=== PATIENT | female | born 1985 | race Caucasian/White ===

== ENCOUNTER 2019-09-27 11:34 | Emergency (ER) | payer OTHER ==
[2019-09-27] MEDS ORDERED: BUFFERED LIDOCAINE 10 ML SYRINGE SUBQ STA (11:56)
--- NOTE | 2019-09-27 12:50 | ED Physician Documentation ---
PD HPI ABD PAIN - Stated complaint Stated Complaint: LOW ABD PAIN - Chief complaint Chief Complaint: Abd Pain - History obtained from History obtained from: Patient - History of Present Illness Timing - onset: How many days ago (2) Timing - duration: Days (2) Timing - details: Gradual onset, Still present Quality: Sharp, Pain Location: RLQ Improved by: Laying still Worsened by: Moving, Position, Palpation Associated symptoms: No: Fever, Nausea, Vomiting, Hematemesis Similar symptoms before: Has not had sx before Recently seen: Surgery - Additional information Additional information: 34-year-old female who is 2 weeks had an emergency done and over the last 2 days she has began to develop some pain above the incision on the right side. She was seen yesterday and had lissa removed they did leave the Steri-Strips on the lateral aspect of the right side of the wound with some superficial dehiscence of the wound. The patient has developed some pain above that area, especially if she is moving around or touching the area. There is no drainage from the wound and no redness to the abdominal wall. Review of Systems Constitutional: reports: Fatigue. denies: Fever, Chills, Myalgias Eyes: denies: Loss of vision Ears: denies: Ear pain Nose: denies: Congestion Throat: denies: Sore throat Cardiac: denies: Chest pain / pressure Respiratory: denies: Cough GI: reports: Abdominal Pain. denies: Vomiting : denies: Dysuria, Frequency Skin: denies: Rash Musculoskeletal: denies: Neck pain, Back pain, Extremity pain PD PAST MEDICAL HISTORY - Present Medications Home Medications: Ambulatory Orders Medication Instructions Recorded Confirmed Clindamycin HCl [Clindamycin 300MG 300 mg PO Q6H #28 capsule 09/27/19 CAP] Oxycodone HCl/Acetaminophen 1 - 2 each PO Q6H PRN #14 tablet 09/27/19 [Percocet 5-325 mg Tablet] - Allergies Allergies/Adverse Reactions: Allergies Allergy/AdvReac Type Severity Reaction Status Date / Time No Known Drug Allergies Allergy Verified 09/27/19 11:57 PD ED PE NORMAL - Vitals Vital signs reviewed: Yes (hypertensive ) - General General: Alert and oriented X 3, No acute distress, Well developed/nourished - HEENT HEENT: Atraumatic, PERRL, EOMI - Neck Neck: Supple, no meningeal sign - Respiratory Respiratory: No respiratory distress - Abdomen Abdomen: Soft, Other (There is a healing pfaninsteal inscision with the right side superficially dehised. There is no surrounding erythema or drainage from the area. The area 2cm above this is tender without palpable mass. There is an area of specific tenderness. 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, No motor deficit, No sensory deficit, Normal speech Eye Opening: Spontaneous Motor: Obeys Commands Verbal: Oriented GCS Score: 15 - Psych Psych: Normal mood, Normal affect Results - Vitals Vitals: Vital Signs - 24 hr 09/27/19 11:45 Temperature 36.9 C Heart Rate 69 Respiratory 18 Rate Blood Pressure 152/96 H O2 Saturation 98 Oxygen O2 Source Room air Procedures - Abscess I&D (location) abd wall Preparation: Confirmed with ultrasound, Chlorhexadine, Lidocaine 1% Incision: Needle aspiration, Purulent drainage, Culture obtained Other: Pt tolerated well, Dressing applied, Antibiotic prescribed PD MEDICAL DECISION MAKING - ED course Complexity details: reviewed old records, considered differential, d/w patient ED course: Previously well 34-year-old female 2 weeks status post section is now developed a small area with a fluid collection above the incision on the right side. I have obtained a specimen of this fluid collection under bedside ultrasound guidance and have sent this for culture. 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 Departure - Departure Disposition: 01 Home, Self Care Clinical Impression: Abscess Condition: Stable Instructions: ED Staph Infec Abx Tx Only Follow-Up: Kelvin Mckinnon MD [Physician No Access] - Prescriptions: Clindamycin HCl [Clindamycin 300MG CAP] 300 mg PO Q6H #28 capsule Oxycodone HCl/Acetaminophen [Percocet 5-325 mg Tablet] 1 - 2 each PO Q6H PRN #14 tablet PRN Reason: pain Comments: Today we were able to identify a small fluid collection above the incision on the right side about 1cm deep to the skin. This may represent an infection and may require further treatment. A sample has been taken for culture and we are putting you on some antibiotic called clindamycin. Results of the culture should be available in 2 days time. Follow up with our surgeon for further care.
[2019-09-27 12:51] VITALS: BP 152/102
== END 2019-09-27 13:15 | disposition home or self-care (01) ==
LOC: ED 11:34
DX: O86.00 Infection of obstetric surgical wound, unspecified (principal)
CPT/HCPCS: 10060; 87070; 87205

== ENCOUNTER 2020-03-07 16:23 | Outpatient (CLI) | payer OTHER | END 2020-03-07 16:24 | disposition critical access hospital (66) | LOC: EMS 16:23 | PROVIDERS: ATTEND Surgery | DX: O03.6 Delayed or excessive hemorrhage following complete or unspecified spontaneous abortion (principal); R10.2 Pelvic and perineal pain | CPT/HCPCS: A0425; A0427 ==

== ENCOUNTER 2020-03-07 16:44 | Day surgery (SDC) | payer OTHER ==
[2020-03-07] MEDS ORDERED: SODIUM CHLORIDE 0.9% 1,000 ML IV STA (16:56)
--- NOTE | 2020-03-07 16:58 | ED Physician Documentation ---
History of Present Illness - Stated complaint Stated Complaint: FEM - History obtained from History obtained from: Patient - Additonal information Additional information: 34-year-old G2, P1 was approximately 9 weeks gestation when she reportedly had an incomplete miscarriage diagnosed at [facility] 6 days ago. Much more severe pain and heavy bleeding going through a pad in minutes. 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 - Present Medications Home Medications: Ambulatory Orders Medication Instructions Recorded Confirmed Clindamycin HCl [Clindamycin 300MG 300 mg PO Q6H #28 capsule 09/27/19 CAP] Oxycodone HCl/Acetaminophen 1 - 2 each PO Q6H PRN #14 tablet 09/27/19 [Percocet 5-325 mg Tablet] - Allergies Allergies/Adverse Reactions: Allergies Allergy/AdvReac Type Severity Reaction Status Date / Time No Known Drug Allergies Allergy Verified 03/07/20 16:49 - Social History Does the pt smoke?: No Smoking Status: Never smoker Does the pt drink ETOH?: No Does the pt have substance abuse?: No - Immunizations Immunizations are current?: Yes PD ED PE NORMAL - Vitals Vital signs reviewed: Yes - General General: Alert and oriented X 3 (tearful) - HEENT HEENT: PERRL, EOMI - Neck Neck: Supple, no meningeal sign, No bony TTP - Abdomen Abdomen: Soft, Non tender - Female Female : Fisher Scallop present (Omnigy), Other (Blood in the vaginal vault, there was tissue hanging out of the cervix and this was removed with ring forceps.) - Neuro Neuro: Alert and oriented X 3, Normal speech Results - Vitals Vitals: Vital Signs - 24 hr 03/07/20 03/07/20 03/07/20 16:49 17:02 18:37 Temperature 37 C 37.0 C 36.9 C Heart Rate 72 72 71 Respiratory 16 16 20 Rate Blood Pressure 110/78 110/78 118/85 H O2 Saturation 96 96 98 03/07/20 20:00 Temperature Heart Rate 60 Respiratory 16 Rate Blood Pressure 108/74 O2 Saturation 100 Oxygen O2 Source Room air - Labs Labs: Laboratory Tests 03/07/20 03/07/20 03/07/20 17:58 17:58 17:58 WBC 8.6 RBC 3.35 L Hgb 10.4 L Hct 30.9 L MCV 92.2 MCH 31.0 MCHC 33.7 RDW 13.0 Plt Count 128 L MPV 10.4 Neut # (Auto) 5.8 Lymph # (Auto) 1.9 [place] # (Auto) 0.7 Eos # (Auto) 0.2 Baso # (Auto) 0.1 Absolute Nucleated RBC 0.00 Nucleated RBC % 0.0 Sodium 136 Potassium 3.5 Chloride 104 Carbon Dioxide 25 Anion Gap 7.0 BUN 11 Creatinine 0.5 Estimated GFR (MDRD) 142 Glucose 88 Calcium 8.0 L HCG, Quant 9186.00 Blood Type Blood Type Recheck 03/07/20 03/07/20 03/07/20 18:31 20:34 20:34 WBC RBC Hgb 10.9 L Hct 32.9 L MCV MCH MCHC RDW Plt Count MPV Neut # (Auto) Lymph # (Auto) [place] # (Auto) Eos # (Auto) Baso # (Auto) Absolute Nucleated RBC Nucleated RBC % Sodium Potassium Chloride Carbon Dioxide Anion Gap BUN Creatinine Estimated GFR (MDRD) Glucose Calcium HCG, Quant Blood Type O POSITIVE Blood Type Recheck O POSITIVE - Rads (name of study) OB sono Radiology: EMP read contemporaneously (Complex soft tissue heterogenous mass measuring 2.9 x 1.6 x 3.6 cm in the lower uterine segment) PD MEDICAL DECISION MAKING - ED course ED course: 34-year-old woman presents with heavy bleeding. She had an ultrasound 6 days ago at [facility] demonstrating intrauterine demise at 8 weeks 6 days gestation and was advised on expectant management. Her beta-hCG at that time was 23,202. Her hemoglobin at that time was 12.7. Today she has heavy bleeding and her hemoglobin has dropped to 10.4, her hCG has dropped to 9186. On pelvic examination she did have products of conception in the cervical os and this was removed with the expectation that this would improve or stop her bleeding but it did not. Case was discussed by phone with Dr. Ariana Meyers who recommended a pelvic ultrasound and 800 mcg of nasal Prost all. She still continued to have heavy bleeding and a repeat H&H was done but without significant change. Ultrasound demonstrated mass consistent with clot or products of conception in the lower uterine segment. Dr. Meyers came and saw the patient and plans to take her to the OR for a D&C. Departure - Departure Disposition: ED Transfer to [facility] Clinical Impression: Incomplete Condition: Stable
[2020-03-07] MEDS ORDERED: HYDROmorphone 1 MG/ML CARPUJECT IVP STA ×3 (17:22→20:38)
[2020-03-07 18:06] LABS: BASOPHILS # (AUTO) 0.1 10^3/uL (0.0-0.1); BASOPHILS % (AUTO) 0.7 %; EOSINOPHILS # (AUTO) 0.2 10^3/uL (0.0-0.7); EOSINOPHILS % (AUTO) 2.6 %; HGB - HEMOGLOBIN 10.4 g/dL (12.0-16.0); LYMPHOCYTES # (AUTO) 1.9 10^3/uL (1.5-3.5); LYMPHOCYTES % (AUTO) 21.5 %; MEAN CORPUSCULAR HGB CONC 33.7 g/dL (32.0-36.0); MEAN CORPUSCULAR VOLUME 92.2 fL (81.0-99.0); MEAN PLATELET VOLUME 10.4 fL (7.9-10.8); MONOCYTES # (AUTO) 0.7 10^3/uL (0.0-1.0); MONOCYTES % (AUTO) 7.8 %; NEUTROPHILS # (AUTO) 5.8 10^3/uL (1.5-6.6); NEUTROPHILS % (AUTO) 67.1 %; PLT - PLATELET COUNT 128 10^3/uL (130-450); RED BLOOD COUNT 3.35 10^6/uL (4.20-5.40); WHITE BLOOD COUNT 8.6 x10^3/uL (4.8-10.8)
[2020-03-07 18:13] LABS: CREATININE 0.5 mg/dL (0.4-1.0)
[2020-03-07] MEDS ORDERED: miSOPROStoL 100 MCG TABLET BC STA (18:18)
[2020-03-07] MEDS ORDERED: miSOPROStoL 200 MCG TABLET BC STA (18:32)
[2020-03-07] MEDS ORDERED: miSOPROStoL 200 MCG TABLET ONE (18:37)
[2020-03-07 20:41] LABS: HGB - HEMOGLOBIN 10.9 g/dL (12.0-16.0)
--- NOTE | 2020-03-07 21:01 | Ultrasound Report ---
PROCEDURE: OB First Trimester INDICATIONS: woman with vaginal bleeding. OUTSIDE/PRIOR DATING DATA: Last menstrual period (LMP): 12/29/2019. LMP-based estimated date of delivery (JOSE MIGUEL): 10/04/2020. First dating scan (date and location): 03/07/2020. Estimated date of delivery (JOSE MIGUEL) from first dating scan: 10/04/2020. TECHNIQUE: Real-time scanning was performed of the fetus and maternal pelvic organs, with image documentation. COMPARISON: None. FINDINGS: Uterus measures 11.3 x 4.3 x 5.5 cm. No intrauterine gestational sac is identified. There is a complex soft tissue with heterogeneous echotexture in the lower uterine segment measuring 2.9 x 1.6 x 3.6 cm. On Doppler ultrasound, there is normal vascularity, suggesting clot. Maternal organs: The right ovaryLimited is seen on transabdominal scanning only and appears grossly n ormal. Right ovary measures 2.8 x 1.3 cm. Left ovary is seen on both transabdominal and transvaginal scanning. Left ovary measures 3.5 x 2.5 cm. Both ovaries are grossly normal in echotexture. IMPRESSION: 1. No intrauterine gestational sac is identified. There is a 2.9 x 1.6 x 3.6 cm heterogeneous soft ti ssue within the lower uterine segment demonstrating absence of vascularity, suggesting clot. 2. Ovaries are grossly normal sonographically. The right ovary was only seen on the transverse abdomi nal scan. No definitive ectopic . 3. Please correlate clinically. If clinically indicated, follow-up imaging may be performed. Reviewed by: Kendell Devine MD on 03/07/2020 9:00 PM PST Approved by: Kendell Devine MD on 03/07/2020 9:00 PM PST Station ID: [id number]
--- NOTE | 2020-03-07 21:05 | Ultrasound Report ---
PROCEDURE: OB Transvaginal INDICATIONS: woman with vaginal bleeding. TECHNIQUE: Transvaginal scanning was performed of the fetus and maternal pelvic organs, with image d ocumentation. COMPARISON: None. OUTSIDE/PRIOR DATING DATA: Last menstrual period (LMP): 12/29/2019. LMP-based estimated date of delivery (JOSE MIGUEL): 10/04/2020. First dating scan (date and location): 03/07/2020. Estimated date of delivery (JOSE MIGUEL) from first dating scan: 10/04/2020. FINDINGS: Uterus measures 11.3 x 4.3 x 5.5 cm. No intrauterine gestational sac is identified. There is a complex soft tissue with heterogeneous echotexture in the lower uterine segment measuring 2.9 x 1.6 x 3.6 cm. On Doppler ultrasound, there is normal vascularity, suggesting clot. Maternal organs: The right ovaryLimited is seen on transabdominal scanning only and appears grossly n ormal. Right ovary measures 2.8 x 1.3 cm. Left ovary is seen on both transabdominal and transvaginal scanning. Left ovary measures 3.5 x 2.5 cm. Both ovaries are grossly normal in echotexture. IMPRESSION: 1. No intrauterine gestational sac is identified. There is a 2.9 x 1.6 x 3.6 cm heterogeneous soft ti ssue within the lower uterine segment demonstrating absence of vascularity, suggesting clot. 2. Ovaries are grossly normal sonographically. The right ovary was only seen on the transverse abdomi nal scan. No definitive ectopic . 3. Please correlate clinically. If clinically indicated, follow-up imaging may be performed. Reviewed by: Kendell Devine MD on 03/07/2020 9:03 PM PST Approved by: Kendell Devine MD on 03/07/2020 9:03 PM PST Station ID: [id number]
--- NOTE | 2020-03-07 21:42 | HISTORY & PHYSICAL EXAMINATION ---
HPI - History of Present Illness HPI Comment/Other: 34-year-old G2, P1 was approximately 9 weeks gestation when she reportedly had an incomplete miscarriage diagnosed at [facility] 6 days ago. Chose expectant mgmt of the miscarriage and had brown spotting for a few days. Today had an abrupt onset of gushing bleeding going through pads q5min. Was making preparation to come to the hospital but became light headed. Partner became concerned and called 911. Lots of midline cramping pain associated. 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 - Present Medications Home Medications: Ambulatory Orders Medication Instructions Recorded Confirmed Clindamycin HCl [Clindamycin 300MG 300 mg PO Q6H #28 capsule 09/27/19 CAP] Oxycodone HCl/Acetaminophen 1 - 2 each PO Q6H PRN #14 tablet 09/27/19 [Percocet 5-325 mg Tablet] - Allergies Allergies/Adverse Reactions: shellfish causes hives Allergies Allergy/AdvReac Type Severity Reaction Status Date / Time No Known Drug Allergies Allergy Verified 03/07/20 16:49 - Social History Does the pt smoke?: No Smoking Status: Never smoker Does the pt drink ETOH?: No Does the pt have substance abuse?: No 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 [place] - Immunizations Immunizations are current?: Yes PD ED PE NORMAL - Vitals Vital signs reviewed: Yes - General General: Alert and oriented X 3 (tearful) - HEENT HEENT: PERRL, EOMI - Neck Neck: Supple, no meningeal sign, No bony TTP Cor RRR Lungs CTA bilat - Abdomen Abdomen: Soft, Non tender - Female Female : by ER Leonardoperone present (Paola Kimball), Other (Blood in the vaginal vault, there was tissue hanging out of the cervix and this was removed with ring forceps.) - Neuro Neuro: Alert and oriented X 3, Normal speech Results - Vitals Vitals: Vital Signs - 24 hr 03/07/20 03/07/20 03/07/20 16:49 17:02 18:37 Temperature 37 C 37.0 C 36.9 C Heart Rate 72 72 71 Respiratory 16 16 20 Rate Blood Pressure 110/78 110/78 118/85 H O2 Saturation 96 96 98 03/07/20 20:00 Temperature Heart Rate 60 Respiratory 16 Rate Blood Pressure 108/74 O2 Saturation 100 Oxygen O2 Source Room air - Labs Labs: Laboratory Tests 03/07/20 03/07/20 03/07/20 17:58 17:58 17:58 WBC 8.6 RBC 3.35 L Hgb 10.4 L Hct 30.9 L MCV 92.2 MCH 31.0 MCHC 33.7 RDW 13.0 Plt Count 128 L MPV 10.4 Neut # (Auto) 5.8 Lymph # (Auto) 1.9 [place] # (Auto) 0.7 Eos # (Auto) 0.2 Baso # (Auto) 0.1 Absolute Nucleated RBC 0.00 Nucleated RBC % 0.0 Sodium 136 Potassium 3.5 Chloride 104 Carbon Dioxide 25 Anion Gap 7.0 BUN 11 Creatinine 0.5 Estimated GFR (MDRD) 142 Glucose 88 Calcium 8.0 L HCG, Quant 9186.00 Blood Type Blood Type Recheck 03/07/20 03/07/20 03/07/20 18:31 20:34 20:34 WBC RBC Hgb 10.9 L Hct 32.9 L MCV MCH MCHC RDW Plt Count MPV Neut # (Auto) Lymph # (Auto) [place] # (Auto) Eos # (Auto) Baso # (Auto) Absolute Nucleated RBC Nucleated RBC % Sodium Potassium Chloride Carbon Dioxide Anion Gap BUN Creatinine Estimated GFR (MDRD) Glucose Calcium HCG, Quant Blood Type O POSITIVE Blood Type Recheck O POSITIVE - Rads (name of study) OB sono Radiology: EMP read contemporaneously (Complex soft tissue heterogenous mass measuring 2.9 x 1.6 x 3.6 cm in the lower uterine segment) PD MEDICAL DECISION MAKING - ED course ED course: 34-yo at around 9w with an incomplete . She had an ultrasound 6 days ago at [facility] demonstrating intrauterine demise at 8 weeks 6 days gestation and was advised on expectant management. Her beta-hCG at that time was 23,202. Her hemoglobin at that time was 12.7. Today she has heavy bleeding and her hemoglobin has dropped to 10.4, her hCG has dropped to 9186. On pelvic examination she did have products of conception in the cervical os and this was removed with the expectation that this would improve or stop her bleeding but it did not. She was given a dose of misoprostol 800mcg to see if that would complete her while waiting for US to be performed. US findings were c/w mass in the lower uterine segment c/w products of conception. Repeat SVE by myself with POC felt at the cervical os. Pt declined to have POCs removed in ER due to possibility for failure and due to her current level of pain. Discussed dilation and curettage, procedure, and recovery. Risks include but not limited to bleeding, infection, trauma to local organs, anesthesia complications, and failure to remove all abnormal tissue. Pt did not have any questions. Consent signed. Plan to do suction D&C. Repeat CBC in PACU and consider discharge home. 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 Social & Family Hx - Social History Does the pt smoke?: No Smoking Status: Never smoker Does the pt drink ETOH?: No Does the pt have substance abuse?: No - POLST Patient has POLST: No Meds/Allgy - Home Medications Home Medications: Ambulatory Orders Medication Instructions Recorded Confirmed Clindamycin HCl [Clindamycin 300MG 300 mg PO Q6H #28 capsule 09/27/19 CAP] Oxycodone HCl/Acetaminophen 1 - 2 each PO Q6H PRN #14 tablet 09/27/19 [Percocet 5-325 mg Tablet] - Allergies Allergies/Adverse Reactions: Allergies Allergy/AdvReac Type Severity Reaction Status Date / Time No Known Drug Allergies Allergy Verified 03/07/20 16:49 Exam - Vital Signs Vital Signs: Vital Signs x48h Temp Pulse Resp BP Pulse Ox 03/07/20 20:00 60 16 108/74 100 03/07/20 18:37 98.4 F 71 20 118/85 H 98 03/07/20 17:02 98.6 F 72 16 110/78 96 03/07/20 16:49 98.6 F 72 16 110/78 96 Results - Lab Results Fish Bones: 03/07/20 20:34 03/07/20 17:58 Other Lab Results: Lab Results x24hrs 03/07/20 03/07/20 03/07/20 Range/Units 20:34 20:34 18:31 WBC (4.8-10.8) x10^3/uL RBC (4.20-5.40) 10^6/uL Hgb 10.9 L (12.0-16.0) g/dL Hct 32.9 L (37.0-47.0) % MCV (81.0-99.0) fL MCH (27.0-31.0) pg MCHC (32.0-36.0) g/dL RDW (12.0-15.0) % Plt Count (130-450) 10^3/uL MPV (7.9-10.8) fL Neut # (Auto) (1.5-6.6) 10^3/uL Lymph # (Auto) (1.5-3.5) 10^3/uL [place] # (Auto) (0.0-1.0) 10^3/uL Eos # (Auto) (0.0-0.7) 10^3/uL Baso # (Auto) (0.0-0.1) 10^3/uL Absolute Nucleated RBC x10^3/uL Nucleated RBC % /100WBC Sodium (135-145) mmol/L Potassium (3.5-5.0) mmol/L Chloride (101-111) mmol/L Carbon Dioxide (21-32) mmol/L Anion Gap (6-13) BUN (6-20) mg/dL Creatinine (0.4-1.0) mg/dL Estimated GFR (MDRD) (>89) Glucose (70-100) mg/dL Calcium (8.5-10.3) mg/dL HCG, Quant mIU/mL Blood Type O POSITIVE Blood Type Recheck O POSITIVE 03/07/20 03/07/20 03/07/20 Range/Units 17:58 17:58 17:58 WBC 8.6 (4.8-10.8) x10^3/uL RBC 3.35 L (4.20-5.40) 10^6/uL Hgb 10.4 L (12.0-16.0) g/dL Hct 30.9 L (37.0-47.0) % MCV 92.2 (81.0-99.0) fL MCH 31.0 (27.0-31.0) pg MCHC 33.7 (32.0-36.0) g/dL RDW 13.0 (12.0-15.0) % Plt Count 128 L (130-450) 10^3/uL MPV 10.4 (7.9-10.8) fL Neut # (Auto) 5.8 (1.5-6.6) 10^3/uL Lymph # (Auto) 1.9 (1.5-3.5) 10^3/uL [place] # (Auto) 0.7 (0.0-1.0) 10^3/uL Eos # (Auto) 0.2 (0.0-0.7) 10^3/uL Baso # (Auto) 0.1 (0.0-0.1) 10^3/uL Absolute Nucleated RBC 0.00 x10^3/uL Nucleated RBC % 0.0 /100WBC Sodium 136 (135-145) mmol/L Potassium 3.5 (3.5-5.0) mmol/L Chloride 104 (101-111) mmol/L Carbon Dioxide 25 (21-32) mmol/L Anion Gap 7.0 (6-13) BUN 11 (6-20) mg/dL Creatinine 0.5 (0.4-1.0) mg/dL Estimated GFR (MDRD) 142 (>89) Glucose 88 (70-100) mg/dL Calcium 8.0 L (8.5-10.3) mg/dL HCG, Quant 9186.00 mIU/mL Blood Type Blood Type Recheck
[2020-03-07 21:49] LABS: C. PNEUMONIAE- RESP PCR PANEL NOT DETECTED
[2020-03-07] MEDS ORDERED: NALOXONE 0.4 MG/ML VIAL IVP PRN (22:34)
[2020-03-07] MEDS ORDERED: METOCLOPRAMIDE 10 MG/2 ML VIAL IVP PRN (22:34)
[2020-03-07] MEDS ORDERED: fentaNYL 100 MCG/2 ML VIAL IVP PRN (22:34)
[2020-03-07] MEDS ORDERED: ONDANSETRON 4 MG/2 ML VIAL IVP PRN ×2 (22:34→22:54)
[2020-03-07] MEDS ORDERED: ePHEDrine 50 MG/ML VIAL IVP PRN (22:34)
[2020-03-07] MEDS ORDERED: MORPHINE 2 MG/ML CARPUJECT IVP PRN (22:34)
[2020-03-07] MEDS ORDERED: ATROPINE ABBOJECT 1 MG/10 ML SYRINGE IVP PRN (22:34)
[2020-03-07] MEDS ORDERED: HYDROmorphone 0.5 MG/0.5 ML SYRINGE IVP PRN (22:34)
--- NOTE | 2020-03-07 22:34 | ANESTHESIA ---
Pre-Anesthesia VS, & Labs - Diagnosis missed - Procedure suction d&C Vital Signs: Temp Pulse Resp BP Pulse Ox 36.8 C 75 16 106/74 100 03/07/20 22:00 03/07/20 22:00 03/07/20 22:00 03/07/20 22:00 03/07/20 22:00 Height: 5 ft 2 in Weight (kg): 75.2 kg Body Mass Index: 30.3 BMI Classification: Obese - NPO Other - Is Patient ?: Yes - Lab Results Current Lab Results: Laboratory Tests 03/07/20 20:34: Hgb 10.9 L, Hct 32.9 L 03/07/20 20:34: Blood Type Recheck O POSITIVE 03/07/20 18:31: Blood Type O POSITIVE 03/07/20 17:58: HCG, Quant 9186.00 03/07/20 17:58: Sodium 136, Potassium 3.5, Chloride 104, Carbon Dioxide 25, Anion Gap 7.0, BUN 11, Creatinine 0.5, Estimated GFR (MDRD) 142, Glucose 88, Calcium 8.0 L 03/07/20 17:58: WBC 8.6, RBC 3.35 L, Hgb 10.4 L, Hct 30.9 L, MCV 92.2, MCH 31.0, MCHC 33.7, RDW 13.0, Plt Count 128 L, MPV 10.4, Neut # (Auto) 5.8, Lymph # (Auto) 1.9, [place] # (Auto) 0.7, Eos # (Auto) 0.2, Baso # (Auto) 0.1, Absolute Nucleated RBC 0.00, Nucleated RBC % 0.0 Lab results reviewed: Yes Fish Bones: 03/07/20 20:34 03/07/20 17:58 Home Medications and Allergies Allergies/Adverse Reactions: Allergies Allergy/AdvReac Type Severity Reaction Status Date / Time No Known Drug Allergies Allergy Verified 03/07/20 16:49 Anes History & Medical History - Anesthetic History Anesthesia Complications: reports: No previous complications Family history of Anesthesia Complications: Denies Family history of Malignant Hyperthermia: Denies - Medical History Smoking Status: Never smoker - Surgical History Gynecologic: section Exam General: Alert, Oriented x3, Cooperative, No acute distress Dental: WNL Mouth Openin Fingerbreadth Neck Mobility: Normal Mallampati classification: I Plan Anesthesia Type: General Consent for Procedure(s) Verified and Reviewed: Yes Code Status: Attempt Resuscitation ASA classification: 3-Severe systemic disease Is this case an emergency?: Yes
[2020-03-07] MEDS ORDERED: LIDOCAINE 2%-EPI 1:100000 20 ML MDV ONE (22:39)
[2020-03-07] MEDS ORDERED: BUPIVACAINE 0.5% PF 30 ML VIAL ONE (22:40)
[2020-03-07] MEDS ORDERED: BUPIVACAINE 0.5% PF 30 ML VIAL INFIL ONE (22:40)
[2020-03-07] MEDS ORDERED: LIDOCAINE 2%-EPI 1:100000 20 ML MDV SUBQ ONE (22:40)
--- NOTE | 2020-03-07 22:56 | OPERATIVE REPORT ---
Operative Report - General Procedure Performed: Preop: incomplete SAB Postop: same Procedure: suction D&C Surg: [place] Assist: none Anesthesia: General EBL 10cc UOP n/a IVF 800cc Complic: none Dispo: PACU Findings: POC in vault. Empty uterus post procedure by US Specimens: POC to path
[2020-03-07] MEDS ORDERED: LACTATED RINGERS 900 ML IV ONE (23:00)
[2020-03-07] MEDS ORDERED: LACTATED RINGERS 1,000 ML IV SCH (23:00)
--- NOTE | 2020-03-07 23:14 | ANESTHESIA POST OP EVALUATION ---
Anesthesia Post Eval - Post Anesthesia Eval Vitals: Last Vital Signs Temp 36.8 C 03/07/20 23:10 Pulse 68 03/07/20 23:10 Resp 16 03/07/20 23:10 BP 123/65 03/07/20 23:10 Pulse Ox 100 03/07/20 23:10 CV Function Including HR & BP: positive: Stable Pain Control: positive: Satisfactory Nausea & Vomiting: positive: Negative Mental Status: positive: Baseline Respiratory Status: Airway Patent Hydration Status: Satisfactory Anesthesia Complications: positive: None
[2020-03-08] MEDS ORDERED: ZOLPIDEM 5 MG TABLET PO PRN (00:32)
--- NOTE | 2020-03-08 02:12 | OPERATIVE REPORT ---
DATE OF SERVICE: 03/07/2020 Physician: Ariana Meyers MD PREOPERATIVE DIAGNOSIS: Incomplete . POSTOPERATIVE DIAGNOSIS: Incomplete . PROCEDURE PERFORMED: Suction dilation and curettage. SURGEON: Ariana Meyers MD KILN FIREMAN: None. ANESTHESIA: General. ESTIMATED BLOOD LOSS: 10 mL INTRAVENOUS FLUIDS: 800 mL COUNTS: Correct x2. COMPLICATIONS: None apparent. DISPOSITION: Stable to recovery room. PROPHYLAXIS: SCDs to bilateral lower extremities. SPECIMENS: Products of conception sent to pathology. FINDINGS: Products of conception present in the vaginal vault and the endocervix. The uterus was em pty post procedure by ultrasound surveillance. COUNSELING: The patient was seen in the emergency room with hemorrhaging and products of conception at her os. These were removed and her bleeding slowed down; however, she still had persistent produc ts of conception at the lower uterine segment. On my arrival to the emergency room, I did palpate pr oducts of conception at her external os. She declined to have me attempt to complete her miscarriage in the emergency room because it had been quite painful the first time. She was counseled that D an d C was her other option. The procedure and recovery were reviewed; risks including, but not limited to bleeding, infection, trauma to local organs, anesthesia complications and failure to remove all p roducts of conception were discussed. All questions were answered and the operative consent was sign ed. DESCRIPTION OF PROCEDURE: The patient was brought to the operating room, where she was induced with general anesthesia. She was placed in low lithotomy in [facility]. A bimanual examination re vealed an axial uterus. She was prepped and draped in the usual sterile fashion. A speculum was nikhil masha into the vagina and the anterior lip of the cervix was grasped with a single-tooth tenaculum. A paracervical block was performed with 6 mL on each side with a mix of lidocaine and Marcaine with epi nephrine. There were products of conception in the vaginal vault and in the cervix that were removed with a ring forceps. The ring did also pull copious products out of the uterus. A size 8 suction c urette was inserted into the uterine cavity, with scant products returned. A sharp pass revealed goo d cry throughout the uterine cavity and ultrasound revealed an empty uterus. The tenaculum and specu lum were removed. The patient had a trickle of bleeding observed coming out of her vagina that was m ore than expected. The speculum was replaced and pressure was applied with a sponge stick. After tw o minutes, the bleeding was scant and the procedure was terminated. The blood was washed from her simone dy. She was returned to the supine position prior to waking. TD: 03/08/2020 00:52
[2020-03-08] MEDS: oxyCODONE 5 MG TABLET PO PRN ×2 (06:00→09:28)
[2020-03-08 10:13] VITALS: BP 113/57
== END 2020-03-08 09:40 | disposition home or self-care (01) ==
LOC: EDUNIT# → ED 16:44 → SDS 21:40 → MS2 22:37 → SDS 03-08 09:40
PROVIDERS: ATTEND Obstetrics & Gynecology
PROC: 10D17ZZ Extraction of Products of Conception, Retained, Via Natural or Artificial Opening (ICD-10-PCS; principal; 2020-03-07 22:15)
DX: O03.1 Delayed or excessive hemorrhage following incomplete spontaneous abortion (principal)
CPT/HCPCS: 0202U; 36415; 80048; 84702; 84703; 85014; 85018; 85025; 86900; 86901; 96361; 96374; 99284

== ENCOUNTER 2020-03-09 09:18 | Emergency (ER) | payer OTHER ==
[2020-03-09] MEDS ORDERED: SODIUM CHLORIDE 0.9% 1,000 ML IV STA (09:50)
[2020-03-09] MEDS ORDERED: HYDROmorphone 1 MG/ML CARPUJECT IVP STA ×2 (09:50→11:11)
--- NOTE | 2020-03-09 09:55 | ED Physician Documentation ---
History of Present Illness - Stated complaint Stated Complaint: FEMALE - Chief complaint Chief Complaint: Abd Pain - History obtained from History obtained from: Patient - History of Present Illness Timing: Yesterday Pain level max: 9 Pain level now: 9 - Additonal information Additional information: Patient is a 34-year-old female who presents to the emergency department after having a D&C 2 days ago. She states that since that time she has had increasing abdominal pain and now she is having neck as well. Took oxycodone at home without relief. Worse with movement, better with rest. She was discharged from the hospital yesterday. No fevers. No vomiting. No diarrhea. She is still having some vaginal bleeding and cramping. 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 03/09/20 Oxycodone HCl/Acetaminophen 1 - 2 each PO Q6H PRN #20 tablet 03/09/20 [Percocet 5-325 mg Tablet] - Allergies Allergies/Adverse Reactions: Allergies Allergy/AdvReac Type Severity Reaction Status Date / Time No Known Drug Allergies Allergy Verified 03/09/20 09:29 - Social History Does the pt smoke?: No Smoking Status: Never smoker Does the pt drink ETOH?: No Does the pt have substance abuse?: No - Immunizations Immunizations are current?: Yes - POLST Patient has POLST: No PD ED PE NORMAL - Vitals Vital signs reviewed: Yes - General General: Alert and oriented X 3, No acute distress - HEENT HEENT: Moist mucous membranes - Neck Neck: Supple, no meningeal sign, No bony TTP - Cardiac Cardiac: RRR - Respiratory Respiratory: No respiratory distress, Clear bilaterally - Abdomen Abdomen: Soft, Other (Tender to palpation across the lower abdomen. No peritoneal signs) - Derm Derm: Warm and dry, No rash - Extremities Extremities: No edema, No calf tenderness / cord - Neuro Neuro: Alert and oriented X 3 Results - Vitals Vitals: Vital Signs - 24 hr 03/09/20 09:24 Temperature 37.2 C Heart Rate 70 Respiratory 18 Rate Blood Pressure 138/84 H O2 Saturation 98 Oxygen O2 Source Room air - Labs Labs: Laboratory Tests 03/09/20 03/09/20 03/09/20 10:02 10:02 10:35 WBC 6.0 RBC 3.28 L Hgb 9.9 L Hct 31.0 L MCV 94.5 MCH 30.2 MCHC 31.9 L RDW 13.2 Plt Count 145 MPV 10.5 Neut # (Auto) 3.2 Lymph # (Auto) 2.1 [place] # (Auto) 0.5 Eos # (Auto) 0.2 Baso # (Auto) 0.0 Absolute Nucleated RBC 0.00 Nucleated RBC % 0.0 Sodium 137 Potassium 3.8 Chloride 102 Carbon Dioxide 26 Anion Gap 9.0 BUN 15 Creatinine 0.6 Estimated GFR (MDRD) 115 Glucose 96 Calcium 8.4 L Total Bilirubin 0.3 AST 17 ALT 11 Alkaline Phosphatase 33 L Total Protein 6.4 L Albumin 3.5 Globulin 2.9 Albumin/Globulin Ratio 1.2 Lipase 23 Urine Color YELLOW Urine Clarity CLEAR Urine pH 6.0 Ur Specific [place] 1.025 Urine Protein NEGATIVE Urine Glucose (UA) NEGATIVE Urine Ketones NEGATIVE Urine Occult Blood MODERATE H Urine Nitrite NEGATIVE Urine Bilirubin NEGATIVE Urine Urobilinogen 0.2 (NORMAL) Ur Leukocyte Esterase NEGATIVE Urine RBC 6-10 H Urine WBC 0-3 Ur Squamous Epith Cells FEW Squamous Urine Bacteria Rare Urine Mucus Few Strands Ur Microscopic Review INDICATED Urine Culture Comments NOT INDICATED - Rads (name of study) CT abdomen pelvis Radiology: Prelim report reviewed, EMP read contemporaneously, See rad report PD MEDICAL DECISION MAKING - ED course Complexity details: reviewed results, re-evaluated patient, considered differential, d/w patient ED course: 34-year-old female presents to the emergency department abdominal pain after a D&C. No acute findings on CT scan, laboratory testing. I discussed the case with Dr. Meyers, gynecology who recommends treating for possible endometritis. Recommends doxycycline 100 mg p.o. twice daily x10 days. Will prescribe pain medication for home as well. Patient's pain is well controlled. She is well-appearing, nontoxic. Afebrile. Tolerating p.o. without difficulty. Patient counseled regarding signs and symptoms for which I believe and urgent re-evaluation would be necessary. Patient with good understanding of and agreement to plan and is comfortable going home at this time This document was made in part using voice recognition software. While efforts are made to proofread this document, sound alike and grammatical errors may occur. No acute finding. Uterine fluid and mucosal/endometrial hyperenhancement, consistent with recent D C. Departure - Departure Disposition: Home, Self Care Clinical Impression: Abdominal pain Qualifiers: Abdominal location: unspecified location Qualified Code(s): R10.9 - Unspecified abdominal pain Condition: Good Instructions: ED Abdominal Pain Unkn Cause Follow-Up: Kelvin Mckinnon MD [Primary Care Provider] - Ariana Meyers MD [Provider Admit Priv/Credential] - Within 1 week Prescriptions: Doxycycline Hyclate 100 mg PO BID #20 tablet. Oxycodone HCl/Acetaminophen [Percocet 5-325 mg Tablet] 1 - 2 each PO Q6H PRN #20 tablet PRN Reason: pain Comments: Return if you worsen. Follow-up with Dr. Meyers for further care. Is importantly take all antibiotics until gone. Your CT scan does not show any acute abnormalities today
[2020-03-09] MEDS ORDERED: IOVERSOL 320 100 ML VIAL IVP ONE ×2 (10:02→13:43)
[2020-03-09 10:08] LABS: BASOPHILS % (AUTO) 0.7 %; EOSINOPHILS # (AUTO) 0.2 10^3/uL (0.0-0.7); EOSINOPHILS % (AUTO) 2.8 %; HGB - HEMOGLOBIN 9.9 g/dL (12.0-16.0); LYMPHOCYTES # (AUTO) 2.1 10^3/uL (1.5-3.5); LYMPHOCYTES % (AUTO) 35.3 %; MEAN CORPUSCULAR HEMOGLOBIN 30.2 pg (27.0-31.0); MEAN CORPUSCULAR HGB CONC 31.9 g/dL (32.0-36.0); MEAN CORPUSCULAR VOLUME 94.5 fL (81.0-99.0); MEAN PLATELET VOLUME 10.5 fL (7.9-10.8); MONOCYTES # (AUTO) 0.5 10^3/uL (0.0-1.0); MONOCYTES % (AUTO) 7.9 %; NEUTROPHILS # (AUTO) 3.2 10^3/uL (1.5-6.6); NEUTROPHILS % (AUTO) 53.1 %; PLT - PLATELET COUNT 145 10^3/uL (130-450); RED BLOOD COUNT 3.28 10^6/uL (4.20-5.40); RED CELL DISTRIBUTION WIDTH 13.2 % (12.0-15.0)
[2020-03-09 10:20] LABS: ALBUMIN 3.5 g/dL (3.2-5.5); ALBUMIN/GLOBULIN RATIO 1.2 (1.0-2.2); BILIRUBIN,TOTAL 0.3 mg/dL (0.2-1.0); CALCIUM 8.4 mg/dL (8.5-10.3); CREATININE 0.6 mg/dL (0.4-1.0); TOTAL PROTEIN 6.4 g/dL (6.7-8.2)
[2020-03-09 10:45] LABS: BILIRUBIN,URINE NEGATIVE (NEGATIVE); GLUCOSE, URINE (UA) NEGATIVE (NEGATIVE); KETONES,URINE (UA) NEGATIVE (NEGATIVE); LEUKOCYTE ESTERASE, URINE NEGATIVE (NEGATIVE); NITRITE,URINE NEGATIVE (NEGATIVE); OCCULT BLOOD,URINE MODERATE (NEGATIVE); PROTEIN,URINE NEGATIVE (NEGATIVE); UROBILINOGEN,URINE 0.2 (NORMAL) E.U./dL (NORMAL)
[2020-03-09 10:47] LABS: CLARITY,URINE CLEAR (CLEAR)
[2020-03-09] MEDS ORDERED: KETOROLAC 30 MG/ML VIAL IVP STA (10:52)
[2020-03-09 10:54] LABS: BACTERIA,URINE Rare /HPF (None Seen); MUCUS,URINE Few Strands; SQUAMOUS EPITHELIAL CELL,UR FEW Squamous (<= Few)
--- NOTE | 2020-03-09 10:58 | CT Report ---
PROCEDURE: Abdomen/Pelvis W INDICATIONS: Abdominal pain s/p D&C 2 days ago CONTRAST: IV CONTRAST: Optiray 320 ml: 100 PO CONTRAST: *NO PO CONTRAST TECHNIQUE: After the administration of intravenous contrast, 5 mm thick sections acquired from the diaphragms to the symphysis. 5 mm thick coronal and sagittal reformats were acquired. For radiation dose reducti on, the following was used: automated exposure control, adjustment of mA and/or kV according to ghazala ent size. COMPARISON: None. FINDINGS: Image quality: Excellent. ABDOMEN: Lung bases: Lung bases are clear. Heart size is normal. Solid organs: Liver and spleen are normal in size and enhancement. Gallbladder is unremarkable. Bi liary system is non dilated. Pancreas enhances normally. No adrenal nodules. Kidneys demonstrate n ormal size and enhancement, without hydronephrosis. Peritoneum and bowel: Bowel loops demonstrate normal wall thickness and caliber. No free fluid or a ir. Nodes and vessels: No retroperitoneal or mesenteric adenopathy by size criteria. Aorta and inferior vena cava are normal in size. Miscellaneous: No ventral hernias. PELVIS: Genitourinary: Uterine hyper enhancement and nonspecific fluid within the uterine cavity, consistent with recent D&C. Trace free pelvic fluid. Ovaries unremarkable. No threshold enlarged pelvic or ingui nal lymph nodes. Bones: No suspicious bony lesions. No vertebral body compression fractures. IMPRESSION: No acute finding. Uterine fluid and mucosal/endometrial hyperenhancement, consistent wit h recent D&C. Reviewed by: Kelvin Gray MD on 03/09/2020 10:57 AM [facility] Approved by: Kelvin Gray MD on 03/09/2020 10:57 AM PST Station ID: [id number]
[2020-03-09] MEDS ORDERED: DOXYCYCLINE 100 MG TABLET PO STA (11:06)
[2020-03-09 11:23] VITALS: BP 133/76
== END 2020-03-09 11:22 | disposition home or self-care (01) ==
LOC: ED 09:18
DX: R10.30 Lower abdominal pain, unspecified (principal); G89.18 Other acute postprocedural pain
CPT/HCPCS: 36415; 74177; 80053; 81001; 83690; 85025; 96374; 96375; 96376; 99284; A9270; J1170; Q9967; 81003; 87086

== ENCOUNTER 2020-03-11 21:12 | Emergency (ER) | payer OTHER ==
[2020-03-11 21:35] LABS: BASOPHILS # (AUTO) 0.1 10^3/uL (0.0-0.1); BASOPHILS % (AUTO) 1.1 %; EOSINOPHILS # (AUTO) 0.2 10^3/uL (0.0-0.7); EOSINOPHILS % (AUTO) 4.2 %; HGB - HEMOGLOBIN 10.5 g/dL (12.0-16.0); MEAN CORPUSCULAR HEMOGLOBIN 31.1 pg (27.0-31.0); MEAN CORPUSCULAR HGB CONC 33.3 g/dL (32.0-36.0); MEAN CORPUSCULAR VOLUME 93.2 fL (81.0-99.0); MEAN PLATELET VOLUME 11.1 fL (7.9-10.8); MONOCYTES # (AUTO) 0.5 10^3/uL (0.0-1.0); MONOCYTES % (AUTO) 8.1 %; NEUTROPHILS # (AUTO) 2.9 10^3/uL (1.5-6.6); NEUTROPHILS % (AUTO) 51.4 %; PLT - PLATELET COUNT 173 10^3/uL (130-450); RED BLOOD COUNT 3.38 10^6/uL (4.20-5.40); RED CELL DISTRIBUTION WIDTH 13.1 % (12.0-15.0); WHITE BLOOD COUNT 5.7 x10^3/uL (4.8-10.8)
[2020-03-11 21:45] LABS: ALBUMIN/GLOBULIN RATIO 1.3 (1.0-2.2); BILIRUBIN,TOTAL 0.3 mg/dL (0.2-1.0); CALCIUM 8.7 mg/dL (8.5-10.3); CREATININE 0.8 mg/dL (0.4-1.0)
[2020-03-11] MEDS ORDERED: KETOROLAC 30 MG/ML VIAL IVP STA (21:57)
[2020-03-11 22:18] LABS: BILIRUBIN,URINE NEGATIVE (NEGATIVE); GLUCOSE, URINE (UA) NEGATIVE (NEGATIVE); KETONES,URINE (UA) NEGATIVE (NEGATIVE); LEUKOCYTE ESTERASE, URINE NEGATIVE (NEGATIVE); NITRITE,URINE NEGATIVE (NEGATIVE); OCCULT BLOOD,URINE MODERATE (NEGATIVE); PH,URINE 6.5 PH (5.0-7.5); PROTEIN,URINE NEGATIVE (NEGATIVE); UROBILINOGEN,URINE 0.2 (NORMAL) E.U./dL (NORMAL)
[2020-03-11 22:19] LABS: CLARITY,URINE CLEAR (CLEAR)
[2020-03-11 22:27] LABS: BACTERIA,URINE Rare /HPF (None Seen); SQUAMOUS EPITHELIAL CELL,UR MOD Squamous (<= Few)
--- NOTE | 2020-03-11 22:53 | ED Physician Documentation ---
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 She has subsequently come back to the emergency department and had some lower abdominal pain was diagnosed with endometritis and placed on doxycycline twice daily. She has had some persistence of upper abdominal pain her pelvic pain is improving her bleeding is improving and she was called today by the POLICE DETECTIVE doctor because the D&C had no products of conception. Dr. Meyers has come into the emergency department and discussed case with me and indicates that there is concern for potential retained products or ectopic, but more likely the miscarriage occurred prior to the D&C and what was removed by D&C was a uterine cast. Her last quantitative hCG was 9100 and that was down from 21,000 at [facility]. Review of Systems Constitutional: denies: Fever Eyes: denies: Decreased vision Ears: denies: Ear pain Nose: denies: Congestion Throat: denies: Sore throat Cardiac: denies: Chest pain / pressure, Palpitations Respiratory: denies: Dyspnea, Cough GI: reports: Abdominal Pain, Nausea. denies: Vomiting, Constipation, Diarrhea : reports: Vaginal bleeding. denies: Dysuria, Frequency Skin: denies: Rash Musculoskeletal: denies: Neck pain, Back pain, Extremity pain Neurologic: denies: Generalized weakness, Focal weakness PD PAST MEDICAL HISTORY - Past Medical History Past Medical History: Yes POLICE DETECTIVE: Miscarriage(s) - Past Surgical History Past Surgical History: Yes /POLICE DETECTIVE: section, Dilation and currettage - Present Medications Home Medications: Ambulatory Orders Medication Instructions Recorded Confirmed Clindamycin HCl [Clindamycin 300MG 300 mg PO Q6H #28 capsule 06/27/20 12/08/20 CAP] Oxycodone HCl/Acetaminophen 1 - 2 each PO Q6H PRN #14 tablet 09/27/19 03/09/20 [Percocet 5-325 mg Tablet] Ibuprofen [Motrin] 600 mg PO Q6H PRN #30 tab 03/07/20 03/09/20 Iron Heme Polypeptide [Proferrin] 12 mg PO DAILY #30 tablet 03/07/20 03/09/20 Doxycycline Hyclate 100 mg PO BID #20 tablet. 03/09/20 Oxycodone HCl/Acetaminophen 1 - 2 each PO Q6H PRN #20 tablet 03/09/20 [Percocet 5-325 mg Tablet] - Allergies Allergies/Adverse Reactions: Allergies Allergy/AdvReac Type Severity Reaction Status Date / Time No Known Drug Allergies Allergy Verified 03/11/20 21:15 - Social History Does the pt smoke?: No Smoking Status: Never smoker Does the pt drink ETOH?: No Does the pt have substance abuse?: No - Immunizations Immunizations are current?: Yes - POLST Patient has POLST: No PD ED PE NORMAL - Vitals Vital signs reviewed: Yes (hypertensive ) - General General: Alert and oriented X 3, No acute distress, Well developed/nourished - HEENT HEENT: Atraumatic, PERRL, EOMI - Neck Neck: Supple, no meningeal sign - Cardiac Cardiac: RRR, No murmur - Respiratory Respiratory: No respiratory distress, Clear bilaterally - Abdomen Abdomen: Normal bowel sounds, Soft, Non distended, No organomegaly, Other (mild general tendernes to the upper abdomen without garding or rebound ) - Back Back: No CVA TTP, No spinal TTP - Derm Derm: Normal color, No rash - Extremities Extremities: No deformity, No edema - Neuro Neuro: Alert and oriented X 3, jockey room custodian 2-12 intact, No motor deficit, No sensory deficit, Normal speech Eye Opening: Spontaneous Motor: Obeys Commands Verbal: Oriented GCS Score: 15 - Psych Psych: Normal mood, Normal affect Results - Vitals Vitals: Vital Signs - 24 hr 03/11/20 03/11/20 03/11/20 21:15 21:21 23:18 Temperature 36.5 C 36.5 C 36.5 C Heart Rate 72 72 75 Respiratory 16 16 16 Rate Blood Pressure 150/82 H 150/82 H 142/80 H O2 Saturation 100 100 100 12/10/20 23:32 Temperature 36.5 C Heart Rate 75 Respiratory 16 Rate Blood Pressure 142/80 H O2 Saturation 100 Oxygen O2 Source Room air - Labs Labs: Laboratory Tests 03/11/20 03/11/20 03/11/20 21:28 21:28 21:28 WBC 5.7 RBC 3.38 L Hgb 10.5 L Hct 31.5 L MCV 93.2 MCH 31.1 H MCHC 33.3 RDW 13.1 Plt Count 173 MPV 11.1 H Neut # (Auto) 2.9 Lymph # (Auto) 2.0 [place] # (Auto) 0.5 Eos # (Auto) 0.2 Baso # (Auto) 0.1 Absolute Nucleated RBC 0.00 Nucleated RBC % 0.0 Sodium 137 Potassium 4.0 Chloride 102 Carbon Dioxide 26 Anion Gap 9.0 BUN 17 Creatinine 0.8 Estimated GFR (MDRD) 83 L Glucose 98 Calcium 8.7 Total Bilirubin 0.3 AST 20 ALT 17 Alkaline Phosphatase 51 Total Protein 7.0 Albumin 4.0 Globulin 3.0 Albumin/Globulin Ratio 1.3 HCG, Quant 1117.72 Urine Color Urine Clarity Urine pH Ur Specific [place] Urine Protein Urine Glucose (UA) Urine Ketones Urine Occult Blood Urine Nitrite Urine Bilirubin Urine Urobilinogen Ur Leukocyte Esterase Urine RBC Urine WBC Ur Squamous Epith Cells Urine Bacteria Ur Microscopic Review Urine Culture Comments 03/11/20 22:14 WBC RBC Hgb Hct MCV MCH MCHC RDW Plt Count MPV Neut # (Auto) Lymph # (Auto) [place] # (Auto) Eos # (Auto) Baso # (Auto) Absolute Nucleated RBC Nucleated RBC % Sodium Potassium Chloride Carbon Dioxide Anion Gap BUN Creatinine Estimated GFR (MDRD) Glucose Calcium Total Bilirubin AST ALT Alkaline Phosphatase Total Protein Albumin Globulin Albumin/Globulin Ratio HCG, Quant Urine Color YELLOW Urine Clarity CLEAR Urine pH 6.5 Ur Specific [place] 1.025 Urine Protein NEGATIVE Urine Glucose (UA) NEGATIVE Urine Ketones NEGATIVE Urine Occult Blood MODERATE H Urine Nitrite NEGATIVE Urine Bilirubin NEGATIVE Urine Urobilinogen 0.2 (NORMAL) Ur Leukocyte Esterase NEGATIVE Urine RBC 6-10 H Urine WBC 0-3 Ur Squamous Epith Cells MOD Squamous H Urine Bacteria Rare Ur Microscopic Review INDICATED Urine Culture Comments NOT INDICATED - Rads (name of study) Ultrasound pelvic complete Radiology: Prelim report reviewed (Impression: No definite retained products of conception. Follow-up as clinically warranted. Possible hemorrhage in the endocervical canal.), EMP read indepedently, See rad report PD MEDICAL DECISION MAKING - ED course Complexity details: reviewed old records, reviewed results, re-evaluated patient, considered differential, d/w patient, d/w wedding consultant (Dr. Meyers will follow quants to zero) ED course: 34-year-old female with a recent miscarriage has had a D&C which returned no products of conception. This appears to be secondary to a uterine cast as predicted by Dr. Meyers. Today her quantitative hCG is 1100 which is about the expected. She has improvement in her abdominal pain from the endometritis. She will be followed by Dr. Meyers till resolution. Departure - Departure Disposition: 01 Home, Self Care Clinical Impression: Complete with infection Condition: Stable Instructions: ED Endometritis Obstetric Follow-Up: Kelvin Mckinnon MD [Primary Care Provider] - Ariana Meyers MD [Provider Admit Priv/Credential] - Comments: Follow-up with Dr. Meyers as planned for repeat quantitative hCGs over the next weeks. Discharge Date/Time: 03/11/20 23:32
[2020-03-11 23:18] VITALS: BP 142/80
--- NOTE | 2020-03-12 08:55 | Ultrasound Report ---
PROCEDURE: Pelvic w/Transvag+Doppler Comp INDICATIONS: pelvic pain, R TECHNIQUE: Real-time scanning was performed of the pelvic organs, with image documentation. Additional endovagi nal scanning was necessary due to incomplete visualization of the adnexal and endometrial structures by transabdominal scanning. COMPARISON: Ultrasound 03/07/2020, CT 03/09/2020. FINDINGS: Transabdominal scanning: Limited scanning through the kidneys shows no hydronephrosis. No pathologi c free abdominal or pelvic fluid. Endovaginal scanning: Uterus: Uterus is anteverted and normal in size at 7.9 x 4.0 x 6.3 cm. The endometrium measures up to 10 mm in combined thickness. scar is visible in the anterior lower uterine segment. No suspicious myometrial mass or increased vascularity. There is a small amount of hyperechoic material in the endocervix suspicious for hemorrhage. Ovaries: The right ovary measures 2.3 x 2.2 x 1.4 cm for a volume of 3.8 cc. The left ovary measures 2.7 x 1.5 x 3.3 cm for a volume of 6.9 cc. Normal follicular echotexture and vascular flow in each o vary. IMPRESSION: 1. No definite retained products of conception. 2. Echogenic material within the endocervix suggesting hemorrhage. 3. Normal ovarian morphology. 4. Concordant with preliminary report. Reviewed by: Gricelda Nuno MD on 03/12/2020 8:54 AM PST Approved by: Gricelda Nuno MD on 03/12/2020 8:54 AM [facility] Station ID: [id number]
== END 2020-03-11 23:32 | disposition home or self-care (01) ==
LOC: ED 21:12
DX: O03.5 Genital tract and pelvic infection following complete or unspecified spontaneous abortion (principal)
CPT/HCPCS: 36415; 80053; 81001; 81003; 84702; 85025; 86900; 86901; 87086; 93975; 96374; 99284